=== PATIENT | male | born 1960 | race Caucasian/White ===

== ENCOUNTER 2019-11-05 20:00 | Emergency (ER) | payer MEDICAID ==
[~2019-11-05] VITALS: Ht 182.9 cm; Wt 85.3 kg
--- NOTE | 2019-11-05 20:08 | NUR ---
PT BIBWIFE C/O WEAK AND UNABLE TO MOVE FEET X2 WEEKS. PER , PT FELL ON CEMENT LAST WEEK AND HAS BEEN FALLING. PT BROUGHT TO BED 12, PLACED IN GOWN AND ON MONITOR. PT ABLE TO MOVE ALL EXTREMEITIES, STATED NAME AND . NO NEURO DEFICT NOTED, PERRLA.
[2019-11-05 20:29] LABS: BASOPHILS % (AUTO) 0.2 % (0.0-2.0); HEMATOCRIT 51 % (39-51); LYMPHOCYTES # (AUTO) 1.2 /CMM (0.8-4.8); LYMPHOCYTES % (AUTO) 6.5 % (20.0-44.0); MEAN CORPUSCULAR HGB CONC 34 g/dl (31.0-36.0); MEAN CORPUSCULAR VOLUME 89 fL (80-96); MONOCYTES % (AUTO) 5.8 % (2.0-12.0); NEUTROPHILS # (AUTO) 15.6 /CMM (1.8-8.9); NEUTROPHILS % (AUTO) 87.5 % (43.0-81.0); PLATELET COUNT (AUTO) 292 /CMM (150-450); RED BLOOD CELL COUNT(AUTO) 5.69 MIL/uL (4.5-6.0); WHITE BLOOD COUNT (AUTO) 17.9 K/uL (4.3-11.0)
[2019-11-05] MEDS ORDERED: IV NS 0.9% 1,000 ML BAG IV ONE (20:30)
[2019-11-05 20:37] LABS: CALCIUM, SERUM 9.8 mg/dL (8.5-10.1); CARBON DIOXIDE 25 mmol/L (21-32); CHLORIDE 101 mmol/L (98-107); CREATININE 1.1 mg/dL (0.6-1.3); GLUCOSE 117 mg/dL (74-106); POTASSIUM 3.7 mmol/L (3.5-5.1); SODIUM SERUM 137 mmol/L (136-145); UREA NITROGEN, BLOOD 27 mg/dL (7-18)
--- NOTE | 2019-11-05 20:42 | NUR ---
BROUGHT TO CT.
[2019-11-05 20:45] LABS: APPEARANCE,URINE Clear (CLEAR); BILIRUBIN,URINE LARGE (NEGATIVE); BLOOD, URINE Trace-intact Ery/uL (NEGATIVE); COLOR,URINE Yellow (YELLOW); KETONES,URINE 40 (NEGATIVE); LEUKOCYTE ESTERASE ,URINE Negative (NEGATIVE); NITRITE, URINE Negative (NEGATIVE); PH,URINE 5.5 (5.0-8.0); PROTEIN,URINE 30 mg/dl (NEGATIVE); SERUM AMMONIA < 10 umol/L (11-32); UGLUCOSE Negative (NEGATIVE)
[2019-11-05 20:48] LABS: ALANINE AMINOTRANSFERASE 34 U/L (12-78); ALBUMIN 3.9 g/dL (3.4-5.0); ALCOHOL, BLOOD < 3 mg/dL (0-0); ALKALINE PHOSPHATASE 95 U/L (46-116); ASPARTATE AMINOTRANSFERASE 50 U/L (15-37); BILIRUBIN,DIRECT 0.4 mg/dL (0.0-0.2); BILIRUBIN,TOTAL 1.6 mg/dL (0.2-1.0); TOTAL PROTEIN, SERUM 7.7 g/dL (6.4-8.2)
[2019-11-05 20:49] LABS: ACETAMINOPHEN 0 ug/ml (10-30); SALICYLATE 0.2 mg/dL (2.8-20.0)
[2019-11-05 20:54] LABS: RBC,URINE 0-2 /HPF (0-2); WBC,URINE 0-2 /HPF (0-3)
[2019-11-05 20:55] LABS: BACTERIA,URINE Few /HPF (None Seen); SQUAMOUS EPITHELIAL CELL,UR Few /HPF (None Seen); THYROID STIMULATING HORMONE 1.789 uIU/mL (0.358-3.74)
--- NOTE | 2019-11-05 21:02 | NUR ---
SPOKE TO PT, PT AAOX4, PLACED ON MONITOR AND PULSE OX. VSS. UPDATED ON MD ORDERS.
--- NOTE | 2019-11-05 21:14 | NUR ---
CHRISSY METCALF TALKING TO RADIOLOGIST REGARDING CT RESULT.
--- NOTE | 2019-11-05 21:22 | NUR ---
PT RESTING IN BED, EASILY AROUSED. VSS.
--- NOTE | 2019-11-05 21:23 | NUR ---
CHRISSY METCALF TALKING TO DR. ROY REGARDING PT.
--- NOTE | 2019-11-05 21:37 | NUR ---
CESARIO KING TO [facility]ENT[facility] CAVANAUGH
--- NOTE | 2019-11-05 21:39 | NUR ---
[phone] CESARIO KING FAX NUMBER FACESHEET AND ED NOTED. [phone] PHONE NUMBERC
[2019-11-05] MEDS ORDERED: DEXAMETHASONE SOD PHOSPHATE 10 MG/ML VIAL IV ONE (22:30)
--- NOTE | 2019-11-05 22:34 | NUR ---
Anne thompson in ED - 11/05/19 at 2253 by TERRY SPOKE TO CESARIO KING FROM [facility] ACCEPTING MD TENORIO/ DR. ROY PHONE # FOR REPORT [phone] [facility] ETA 30MIN
--- NOTE | 2019-11-05 22:34 | NUR ---
SPOKE TO CESARIO KING FROM [facility] PT WILL GO TO ROOM 1321-1 ACCEPTING MD TENORIO/ DR. ROY PHONE # FOR REPORT [phone] [facility] ETA 30MIN
[2019-11-05 22:50] VITALS: BP 135/71
--- NOTE | 2019-11-05 23:00 | NUR ---
REPORT GIVEN TO MENDOZA SEVILLA FOR [facility] FROM [facility]
--- NOTE | 2019-11-05 23:10 | NUR ---
REPORT GIVEN TO EMS FOR TRANSFER
--- NOTE | 2019-11-05 23:17 | NUR ---
PT BEING TRANSFERED.
== END 2019-11-05 23:40 | disposition short-term general hospital (02) ==
LOC: ER 20:02
DX: G93.9 Disorder of brain, unspecified (principal); G91.9 Hydrocephalus, unspecified; R41.82 Altered mental status, unspecified
CPT/HCPCS: 36415; 70450; 71045; 80048; 80076; 80305; 80307; 80329; 81001; 82140; 82962; 84443; 84484; 85025; 85730; 93005; 96361; 96374; 99285; G0480; J1100; J7030; 81000-TC